=== PATIENT | female | born 1995 | race Caucasian/White ===

== ENCOUNTER 2018-03-24 21:10 | Emergency (ER) | payer MEDICAID, OTHER | END 2018-03-24 21:41 | disposition left against medical advice (07) | LOC: DL.ED 21:10 → EDUNIT# 21:10 → DL.ED 21:41 | DX: Z53.21 Procedure and treatment not carried out due to patient leaving prior to being seen by health care provider (principal) ==

== ENCOUNTER 2018-03-25 10:32 | Emergency (ER) | payer MEDICAID, OTHER ==
--- NOTE | 2018-03-25 10:46 | EDM.PDOC ---
ED HPI GENERAL MEDICAL PROBLEM - General Stated Complaint: STRP THROAT Time Seen by Provider: 03/25/18 10:46 Source of Information: Reports: Patient, RN, RN Notes Reviewed History Limitations: Reports: No Limitations - History of Present Illness INITIAL COMMENTS - FREE TEXT/NARRATIVE: Pt to ER with c/o sore throat beginning yesterday. Patient states it has been progressively getting worse with swallowing and trying to eat or drink. Patient states she has had a cough with no production, and chills. Patient states she had a fever last night but took Tylenol and has not had one since. Denies SOB, N /V/D. Does admit to a headache. Has been taking Tylenol for the pain/fever. Onset: Gradual Onset Date: 03/24/18 Duration: Getting Worse Location: Reports: Neck Quality: Reports: Sharp - Related Data Allergies Allergy/AdvReac Type Severity Reaction Status Date / Time albuterol Allergy Chest Verified 03/25/18 10:54 Tightness Home Meds: Home Meds . [No Known Home Meds] 03/25/18 [History] ED ROS ENT - Review of Systems Review Of Systems: ROS reveals no pertinent complaints other than HPI. ED EXAM, ENT - Physical Exam Exam: See Below Exam Limited By: No Limitations General Appearance: Alert, WD/WN, No Apparent Distress Eye Exam: Bilateral Eye: EOMI, Normal Inspection Ears: Normal External Exam, Hearing Grossly Normal Nose: Normal Inspection Mouth/Throat: Normal Inspection, Normal Gums, Normal Lips, Normal Oropharynx, Normal Teeth Head: Atraumatic, Normocephalic Neck: Normal Inspection, Supple, Full Range of Motion, Lymphadenopathy (L), Lymphadenopathy (R), Tender Lateral Respiratory/Chest: No Respiratory Distress, Lungs Clear, Normal Breath Sounds, No Accessory Muscle Use, Chest Non-Tender Cardiovascular: Normal Peripheral Pulses, Regular Rate, Rhythm, No Edema, No Gallop, No JVD, No Murmur, No Rub GI/Abdominal: Normal Bowel Sounds, Soft, Non-Tender, No Organomegaly, No Distention, No Abnormal Bruit, No Mass (Female) Exam: Deferred Rectal (Female) Exam: Deferred Back: Normal Inspection, Full Range of Motion Extremities: Normal Inspection, Normal Range of Motion, Non-Tender, No Pedal Edema, Normal Capillary Refill Neurological: Alert, Oriented, CN II-XII Intact, Normal Cognition, Normal Gait, Normal Reflexes, No Motor/Sensory Deficits Psychiatric: Normal Affect, Normal Mood Skin: Warm, Dry, Intact, Normal Color, No Rash Lymphatic: Adenopathy (Anterior Cervical +2 bilateral) Course - Vital Signs Last Recorded V/S: Last Vital Signs Temp 98.8 F 03/25/18 10:50 Pulse 62 03/25/18 10:50 Resp 16 03/25/18 10:50 BP 104/74 03/25/18 10:50 Pulse Ox 99 03/25/18 10:50 - Orders/Labs/Meds Orders: Active Orders 24 hr Category Date Time Status CULTURE STREP A CONFIRMATION [RM] Stat Lab 03/25/18 10:47 Results STREP SCRN A RAPID W CULT CONF [] Stat Lab 03/25/18 10:47 Ordered Labs: Rapid Strep: Negative Departure - Departure Time of Disposition: 10:58 Disposition: Home, Self-Care 01 Condition: Fair Clinical Impression: Pharyngitis Qualifiers: Pharyngitis/tonsillitis etiology: unspecified etiology Qualified Code(s): J02.9 - Acute pharyngitis, unspecified - Discharge Information *PRESCRIPTION DRUG MONITORING PROGRAM REVIEWED*: No *COPY OF PRESCRIPTION DRUG MONITORING REPORT IN PATIENT ANA: No Instructions: Pharyngitis, [id number] Forms: ED Department Discharge Additional Instructions: RX: Magic Mouthwash Continue to use tylenol and/or ibuprofen as directed for pain/fever Drink plenty of fluids Follow up with your primary care facility - My Orders Last 24 Hours: My Active Orders 03/25/18 10:47 CULTURE STREP A CONFIRMATION [RM] Stat STREP SCRN A RAPID W CULT CONF [] Stat - Assessment/Plan Last 24 Hours: My Active Orders 03/25/18 10:47 CULTURE STREP A CONFIRMATION [RM] Stat STREP SCRN A RAPID W CULT CONF [] Stat
== END 2018-03-25 11:11 | disposition home or self-care (01) ==
LOC: DL.ED 10:32 → EDUNIT# 10:32 → DL.ED 11:11
DX: J02.9 Acute pharyngitis, unspecified (principal)
CPT/HCPCS: 87081; 87430; 99282

== ENCOUNTER 2018-04-22 11:43 | Emergency (ER) | payer MEDICAID | END 2018-04-22 15:21 | disposition left against medical advice (07) | LOC: DL.ED 11:43 | DX: Z53.21 Procedure and treatment not carried out due to patient leaving prior to being seen by health care provider (principal) ==

== ENCOUNTER 2018-04-23 18:30 | Emergency (ER) | payer MEDICAID | END 2018-04-23 20:18 | disposition left against medical advice (07) | LOC: DL.ED 18:30 | DX: Z53.21 Procedure and treatment not carried out due to patient leaving prior to being seen by health care provider (principal) ==

== ENCOUNTER 2020-05-25 12:11 | Emergency (ER) | payer MEDICAID ==
[2020-05-25] MEDS ORDERED: HYDROmorphone 1 MG/ML Syringe IVPUSH ONE (12:50)
[2020-05-25] MEDS ORDERED: Iopamidol 612 MG/ML 100 ML Bottle IVPUSH ONE (13:10)
[2020-05-25 13:11] LABS: CHLORIDE,CL 99 mmol/L (98-107); SODIUM,NA 140 mmol/L (136-145)
--- NOTE | 2020-05-25 13:27 | EDM.PDOC ---
ED HPI GENERAL MEDICAL PROBLEM - General Chief Complaint: Skin Complaint Stated Complaint: ABCSESS, SWELLING OF RIGHT FACE Time Seen by Provider: 05/25/20 13:15 Source of Information: Reports: Patient, RN, RN Notes Reviewed History Limitations: Reports: No Limitations - History of Present Illness INITIAL COMMENTS - FREE TEXT/NARRATIVE: Patient presents to the ED via personal vehicle with complaints of right dental pain and swelling. The patient states she was seen by her routine dentist yesterday (05/24/2020) and was subsequently diagnosed with a dental abscess; plan to remove tooth once antibiotic course is complete. She states today the pain, swelling, and redness to her face are worse and have spread to now involve the inferior aspect of her eye. She reports she was prescribed amoxicillin 500mg TID, and she has been taking her doses. She denies fever, shaking chills, changes in vision, difficulty swallowing, or changes in her voice. She has not taken any additional medications for this problem. - Related Data Allergies Allergy/AdvReac Type Severity Reaction Status Date / Time albuterol Allergy Chest Verified 07/06/18 09:43 Tightness Penicillins Allergy Chest Verified 07/06/18 09:43 Tightness Home Meds: Home Meds Acetaminophen [Extra Strength Non-Aspirin] 1,000 mg PO DAILY 07/06/18 [History] Past Medical History [employer] History: Reports: Musculoskeletal History: Reports: Fracture Neurological History: Reports: None Psychiatric History: Reports: None Endocrine/Metabolic History: Reports: None Hematologic History: Reports: None Immunologic History: Reports: None Dermatologic History: Reports: None - Past Surgical History HEENT Surgical History: Reports: Adenoidectomy, Oral Surgery, Tonsillectomy Female Surgical History: Reports: Section, Tubal Ligation Social & Family History - Family History Family Medical History: Noncontributory - Caffeine Use Caffeine Use: Reports: Coffee, Energy Drinks, Soda ED ROS GENERAL - Review of Systems Review Of Systems: Comprehensive ROS is negative, except as noted in HPI. ED EXAM, SKIN/RASH Exam: See Below Exam Limited By: No Limitations General Appearance: Alert, WD/WN, No Apparent Distress Eye Exam: Right Eye: Periorbital Changes (Edema, erythema, and pain to inferior orbit), Bilateral Eye: EOMI, PERRL Nose: Normal Inspection Throat/Mouth: Normal Lips, Normal Voice, No Airway Compromise. No: Normal Teeth (Multiple missing and capped teeth; Abscess noted around crown on right back molar) Head: Atraumatic, Normocephalic Neck: Normal Inspection, Supple, Non-Tender, Full Range of Motion. No: Lymphadenopathy (L), Lymphadenopathy (R) Respiratory/Chest: No Respiratory Distress, Lungs Clear, Normal Breath Sounds, No Accessory Muscle Use, Chest Non-Tender Cardiovascular: Normal Peripheral Pulses, Regular Rate, Rhythm, No Edema, No Gallop, No JVD, No Murmur, No Rub Neurological: Alert, Oriented, CN II-XII Intact, No Motor/Sensory Deficits Skin: Warm, Dry, Erythema (To right cheek and inferior orbit), Increased Warmth (To right cheek and inferior orbit), Other (Edema to right cheek and inferior orbit). No: Ecchymosis, Petechiae, Rash, Wound/Incision Location, Skin: Face Associated features: Warmth, Tenderness, Swelling, Inflammation Course - Vital Signs Last Recorded V/S: Last Vital Signs Temp 98.1 F 05/25/20 12:20 Pulse 84 05/25/20 12:20 Resp 18 05/25/20 12:20 BP 123/56 L 05/25/20 12:20 Pulse Ox 99 05/25/20 12:20 - Orders/Labs/Meds Orders: Active Orders 24 hr Category Date Time Status CULTURE BLOOD [BC] Stat Lab 05/25/20 12:34 Received Labs: Laboratory Tests 05/25/20 05/25/20 05/25/20 Range/Units 12:30 12:30 12:34 WBC 6.2 (5.0-10.0) 10^3/uL RBC 5.34 (4.2-5.4) 10^6/uL Hgb 13.6 (12.0-16.0) g/dL Hct 42.6 (37.0-47.0) % MCV 79.8 L (80-100) fL MCH 25.5 L (27.0-34.0) pg MCHC 31.9 L (33.0-35.0) g/dL Plt Count 251 (150-450) 10^3/uL Neut % (Auto) 56.1 (42.2-75.2) % Lymph % (Auto) 29.2 (20.5-50.1) % [place] % (Auto) 11.4 H (2-8) % Eos % (Auto) 3.0 (1.0-3.0) % Baso % (Auto) 0.3 (0.0-1.0) % Sodium (136-145) mmol/L Potassium (3.5-5.1) mmol/L Chloride (98-107) mmol/L Carbon Dioxide (21-32) mmol/L Anion Gap (7-13) mEq/L BUN (7-18) mg/dL Creatinine (0.55-1.02) mg/dL Est Cr Clr Drug Dosing Estimated GFR (MDRD) BUN/Creatinine Ratio (No establ ref range) Glucose (74-99) mg/dL Lactic Acid (0.4-2.0) mmol/L Calcium (8.5-10.1) mg/dL Total Bilirubin (0.2-1.0) mg/dL AST (15-37) U/L ALT (14-59) U/L Alkaline Phosphatase (46-116) U/L Total Protein (6.4-8.2) g/dL Albumin (3.4-5.0) g/dL Globulin Albumin/Globulin Ratio Urine Color Yellow (YELLOW) Urine Appearance Clear (CLEAR) Urine pH 7.0 (5.0-9.0) Ur Specific [place] 1.025 (1.005-1.030) Urine Protein 100 H (NEGATIVE) Urine Glucose (UA) Negative (NEGATIVE) Urine Ketones Negative (NEGATIVE) Urine Occult Blood Small H (NEGATIVE) Urine Nitrite Negative (NEGATIVE) Urine Bilirubin Negative (NEGATIVE) Urine Urobilinogen 0.2 (0.2-1.0) mg/dL Ur Leukocyte Esterase Negative (NEGATIVE) Urine RBC 0-5 /HPF Urine WBC 0-5 (0-5/HPF) /HPF Ur Epithelial Cells Moderate H (NOT SEEN) /HPF Amorphous Sediment Rare (NOT SEEN) /HPF Urine Bacteria Occasional (0-FEW/HPF) /HPF Urine Mucus Occasional (NOT SEEN) /LPF Urine Yeast Occasional H (NOT SEEN) /HPF Urine HCG, Qual Negative 05/25/20 05/25/20 Range/Units 12:34 12:34 WBC (5.0-10.0) 10^3/uL RBC (4.2-5.4) 10^6/uL Hgb (12.0-16.0) g/dL Hct (37.0-47.0) % MCV (80-100) fL MCH (27.0-34.0) pg MCHC (33.0-35.0) g/dL Plt Count (150-450) 10^3/uL Neut % (Auto) (42.2-75.2) % Lymph % (Auto) (20.5-50.1) % [place] % (Auto) (2-8) % Eos % (Auto) (1.0-3.0) % Baso % (Auto) (0.0-1.0) % Sodium 140 (136-145) mmol/L Potassium 3.0 L (3.5-5.1) mmol/L Chloride 99 (98-107) mmol/L Carbon Dioxide 31 (21-32) mmol/L Anion Gap 13.0 (7-13) mEq/L BUN 7 (7-18) mg/dL Creatinine 0.76 (0.55-1.02) mg/dL Est Cr Clr Drug Dosing TNP Estimated GFR (MDRD) > 60 BUN/Creatinine Ratio 9.2 (No establ ref range) Glucose 58 L (74-99) mg/dL Lactic Acid 1.6 (0.4-2.0) mmol/L Calcium 9.2 (8.5-10.1) mg/dL Total Bilirubin 0.5 (0.2-1.0) mg/dL AST 14 L (15-37) U/L ALT 16 (14-59) U/L Alkaline Phosphatase 67 (46-116) U/L Total Protein 7.8 (6.4-8.2) g/dL Albumin 3.5 (3.4-5.0) g/dL Globulin 4.3 Albumin/Globulin Ratio 0.8 Urine Color (YELLOW) Urine Appearance (CLEAR) Urine pH (5.0-9.0) Ur Specific [place] (1.005-1.030) Urine Protein (NEGATIVE) Urine Glucose (UA) (NEGATIVE) Urine Ketones (NEGATIVE) Urine Occult Blood (NEGATIVE) Urine Nitrite (NEGATIVE) Urine Bilirubin (NEGATIVE) Urine Urobilinogen (0.2-1.0) mg/dL Ur Leukocyte Esterase (NEGATIVE) Urine RBC /HPF Urine WBC (0-5/HPF) /HPF Ur Epithelial Cells (NOT SEEN) /HPF Amorphous Sediment (NOT SEEN) /HPF Urine Bacteria (0-FEW/HPF) /HPF Urine Mucus (NOT SEEN) /LPF Urine Yeast (NOT SEEN) /HPF Urine HCG, Qual Meds: Medications Discontinued Medications Generic Name Dose Route Start Last Admin Trade Name Deon PRN Reason Stop Dose Admin Hydromorphone HCl 2 mg 05/25/20 12:50 05/25/20 12:54 Dilaudid IVPUSH 05/25/20 12:51 2 mg ONETIME ONE Administration Iopamidol 100 ml 05/25/20 13:10 05/25/20 13:15 Isovue-300 (61%) IVPUSH 05/25/20 13:11 100 ml ONETIME ONE Administration - Re-Assessments/Exams Free Text/Narrative Re-Assessment/Exam: 05/25/20 14:21 Confirmed with Radiologist, no optic nerve involvement. Will discharge patient home with Augmentin 875 BID x10 days. 05/25/20 14:38 K noted to be low. Will treat with KCl PO 40mEq. Departure - Departure Time of Disposition: 14:22 Disposition: Home, Self-Care 01 Condition: Good Clinical Impression: Abscess, dental, Hypokalemia - Discharge Information *PRESCRIPTION DRUG MONITORING PROGRAM REVIEWED*: Not Applicable *COPY OF PRESCRIPTION DRUG MONITORING REPORT IN PATIENT ANA: Not Applicable Forms: ED Department Discharge Additional Instructions: Rx: Augmentin Rx: Toradol Stop amoxicillin and take Augmentin, as per prescription. Follow up with dentist, as previously scheduled. Continue with ice packs; 20 minutes, every hour while awake. Do not take ibuprofen or NSAIDS while taking Toradol. You may take acetaminophen (Tylenol) 1000mg every six hours in addition to the Toradol. Stagger these doses so you are taking a medication every 3 hours. Sepsis Event Note (ED) - Focused Exam Vital Signs: Vital Signs Temp Pulse Resp BP Pulse Ox 05/25/20 12:20 98.1 F 84 18 123/56 L 99 - My Orders Last 24 Hours: My Active Orders 05/25/20 12:34 CULTURE BLOOD [BC] Stat - Assessment/Plan Last 24 Hours: My Active Orders 05/25/20 12:34 CULTURE BLOOD [BC] Stat
--- NOTE | 2020-05-25 13:50 | CT ---
EXAMINATION: Max Facial Sinus w Cont SEX: Female AGE: 25 years CLINICAL HISTORY: 25-year-old 136 pound female smoker with dental pain. Abscess? Scan technique: Volume acquisition of data jaws and facial bones obtained during intravenous administration 100 cc nonionic Isovue contrast (3 cc/s via injector) while patient lying supine on Siemens multislice scanner [place], [place]. All data archived in the PACS system for storage, reformatting axial/sagittal/coronal planes and study (bone/soft tissue windows). Interpretation: 1. Artifact associated with numerous dental fillings, bilaterally upper (maxilla) and lower (mandible) jaw. 2. No other foreign bodies. Symmetric dental occlusion. Normal temporomandibular joints. 3. Nasal septum midline. Symmetric clear pneumatization of the frontal, ethmoid and sphenoid sinuses. 4. *Abnormal inflammatory thickening periosteum, right maxillary sinus with abnormal ipsilateral, infraorbital, soft tissue swelling on the right (note: Soft tissue swelling directly over dental fillings on the right). 5. Left maxillary and mastoid sinuses clear. 6. No sign of facial bone fracture or infection (osteomyelitis). 7. Symmetric normal-appearing bony orbits and optic globes. CONCLUSION: Abnormal inflammatory changes (STS) face, on the right with underlying maxillary sinusitis.
[2020-05-25] MEDS ORDERED: Potassium Chloride 10 MEQ Tab.ER PO ONE (14:33)
== END 2020-05-25 14:00 | disposition home or self-care (01) ==
LOC: DL.ED 12:11
DX: K04.7 Periapical abscess without sinus (principal); E87.6 Hypokalemia; Z88.8 Allergy status to other drugs, medicaments and biological substances; Z88.0 Allergy status to penicillin
CPT/HCPCS: 36415; 70487; 80053; 81001; 81025; 83605; 85025; 87040; 96374; 99283; A9270; J1170; Q9967